=== PATIENT | male | born 1960 | race Caucasian/White ===

== ENCOUNTER 2024-05-19 19:10 | Emergency (ER) | payer SELFPAY ==
[~2024-05-19] VITALS: Ht 188 cm; Wt 110.0 kg
[2024-05-19 19:20] VITALS: O2SAT 94
[2024-05-19 20:37] LABS: BASOPHILS % 0.5 % (0.0-2.0); EOSINOPHILS % 1.1 % (0.0-5.0); HEMATOCRIT. 31.2 % (42.0-52.0); HEMOGLOBIN. 10.5 g/dL (14.0-18.0); LYMPHOCYTES % 2.9 % (20.0-50.0); MEAN CORPUSCULAR HEMOGLOBIN 32.1 pg (28.0-32.0); MEAN CORPUSCULAR HGB CONC 33.8 g/dL (31.0-37.0); MEAN PLATELET VOLUME 9.8 fl (7.4-10.4); MONOCYTES % 1.2 % (2.0-8.0); NEUTROPHILS % 94.3 % (40.0-76.0); PLATELET 154 x1000/uL (130-400); RED BLOOD CELL COUNT 3.28 mill/uL (4.7-6.1); RED CELL DISTRIBUTION WIDTH 14.2 % (11.6-14.6); WHITE BLOOD COUNT 8.8 x1000/uL (4.5-11.0)
[2024-05-19] MEDS: LORAZEPAM 2MG/ML INJ IV ONE (20:41)
[2024-05-19 20:44] LABS: CHLORIDE 111 mEq/L (98-107); SODIUM 145 mEq/L (136-145)
[2024-05-19 20:45] LABS: CALCIUM 8.7 mg/dL (8.7-10.4); CARBON DIOXIDE 27 mEq/L (21-32); DIFFERENTIAL COMMENT 1
[2024-05-19] MEDS ORDERED: LEVOFLOXACIN 750MG PREMIX 150 ML IV ONE (20:45)
[2024-05-19 20:50] LABS: CREATININE 1.1 mg/dL (0.6-1.3); GLUCOSE 90 mg/dL (70-105); UREA NITROGEN BLOOD 26 mg/dL (9-23)
[2024-05-19 20:53] LABS: PROTHROMBIN TIME 11.6 sec (9.6-11.0)
[2024-05-19] MEDS: SODIUM CHLORIDE 0.9% 2,200 ML IV ONE (21:07)
[2024-05-19] MEDS: CEFTRIAXONE 1GM/50ML 50 ML IV NR (21:14)
[2024-05-19] MEDS ORDERED: AZITHROMYCIN 500MG/250ML 250 ML IV SCH (21:15)
[2024-05-19] MEDS: AZITHROMYCIN 500MG/250ML 250 ML IV SCH (22:04)
[2024-05-20] MEDS: ACETAMINOPHEN 325MG TABLET PO ONE (01:28)
[2024-05-20 02:00] VITALS: TEMP 37.28076
[2024-05-20] MEDS ORDERED: LEVO750T68 MT (02:54)
[2024-05-20 06:00] VITALS: BP 110/62; PULSE 68; RESP 17; O2SAT 97
== END 2024-05-20 08:39 | disposition home or self-care (01) ==
LOC: ER 19:10 → EDBEDREQTM 05-20 02:27 → EDBEDREQ 05-20 02:27 → EDBEDREQSVC 05-20 02:27 → ER 05-20 08:39
DX: A41.9 Sepsis, unspecified organism (principal); R41.0 Disorientation, unspecified; E86.0 Dehydration; E78.5 Hyperlipidemia, unspecified; I10 Essential (primary) hypertension; N40.0 Benign prostatic hyperplasia without lower urinary tract symptoms; Z20.822 Contact with and (suspected) exposure to COVID-19; Z86.73 Personal history of transient ischemic attack (TIA), and cerebral infarction without residual deficits
CPT/HCPCS: 80048; 83605; 85025; 85610; 87040; 87186; 87077; 36415; 84145; 71045; 93005; 96367; 96365; 96375; 99285; 87804 ×2; 87426; J0456; J0696; J2060; J7030; Z7610; J1956

== ENCOUNTER 2024-07-06 19:17 | Inpatient (IN) | payer BC ==
[~2024-07-06] VITALS: Ht 188 cm; Wt 106.6 kg
[~2024-07-06 19:17] MED LIST: LEVO750T68 MT
[2024-07-06] MEDS: SODIUM CHLORIDE 0.9% (SEPSIS BOLUS) IV ONE (20:08)
[2024-07-06] MEDS: VANCOMYCIN 1G PREMIX 200 ML IV ONE (20:12)
[2024-07-06] MEDS: PIPERACILLIN/TAZO 3.375G/50ML 50 ML IV ONE (20:14)
[2024-07-06 20:17] LABS: HEMATOCRIT. 30.6 % (42.0-52.0); HEMOGLOBIN. 10.3 g/dL (14.0-18.0); MEAN CORPUSCULAR HEMOGLOBIN 31.6 pg (28.0-32.0); MEAN CORPUSCULAR HGB CONC 33.6 g/dL (31.0-37.0); MEAN CORPUSCULAR VOLUME 94.1 fL (80.0-94.0); MEAN PLATELET VOLUME 9.9 fl (7.4-10.4); PLATELET 117 x1000/uL (130-400); RED BLOOD CELL COUNT 3.25 mill/uL (4.7-6.1); RED CELL DISTRIBUTION WIDTH 14.4 % (11.6-14.6); WHITE BLOOD COUNT 8.8 x1000/uL (4.5-11.0)
[2024-07-06 20:28] LABS: CHLORIDE 113 mEq/L (98-107); POTASSIUM 3.5 mEq/L (3.5-5.1); SODIUM 147 mEq/L (136-145)
[2024-07-06 20:29] LABS: CALCIUM 8.5 mg/dL (8.7-10.4); CARBON DIOXIDE 25 mEq/L (21-32)
[2024-07-06 20:34] LABS: GLUCOSE 115 mg/dL (70-105); UREA NITROGEN BLOOD 21 mg/dL (9-23)
[2024-07-06 20:35] LABS: TROPONIN I HIGH SENSITIVITY 8 ng/L (3.0-53)
[2024-07-06 20:36] LABS: ALANINE AMINOTRANSFERASE 13 IU/L (10-49); ALBUMIN 3.3 g/dL (3.2-4.8); ASPARTATE AMINOTRANSFERASE 13 IU/L (<34); BILIRUBIN DIRECT 0.5 mg/dL (<=3.0)
[2024-07-06 20:37] LABS: BILIRUBIN TOTAL 1.2 mg/dL (0.1-1.0)
[2024-07-06 20:42] LABS: DIFFERENTIAL COMMENT 1
[2024-07-06 20:58] LABS: INR 1.2; PROTHROMBIN TIME 12.4 sec (9.6-11.0)
[2024-07-06 21:42] LABS: PLATELET ESTIMATE DECREASED
[2024-07-06 23:09] LABS: INFLUENZA TYPE A Presumptive Negative (Pres. Neg.); INFLUENZA TYPE B Presumptive Negative (Pres. Neg.)
[2024-07-06 23:10] LABS: RESPIRATORY SYNCYTIAL VIRUS Not Detected (Not Detectd)
[2024-07-06] MEDS: GABAPENTIN 300MG CAPSULE PO ONE (23:40)
[2024-07-07 00:10] VITALS: BP 112/49; PULSE 76; RESP 16; TEMP 36.3; O2SAT 93
[2024-07-07] MEDS ORDERED: IPRATROPIUM/ALBUTEROL 0.5-3(2.5)MG/3ML NEB HHN PRN (00:45)
[2024-07-07] MEDS ORDERED: CLONIDINE 0.1MG TABLET PO PRN (00:45)
[2024-07-07] MEDS ORDERED: HYDROCODONE/ACETAMINOPHEN 5/325MG TABLET PO PRN (00:45)
[2024-07-07] MEDS ORDERED: GUAIFENESIN 200MG/10ML SUGAR FREE UDC PO PRN (00:45)
[2024-07-07] MEDS ORDERED: MAGNESIUM/ALUMINUM HYDROXIDE/SIMETHICONE 30ML UDC PO PRN (00:45)
[2024-07-07] MEDS ORDERED: CEFEPIME 1GM IN DEXT 5% 50ML IV SCH (00:45)
[2024-07-07] MEDS ORDERED: DOCUSATE SODIUM 100MG CAPSULE PO PRN (00:45)
[2024-07-07] MEDS: ACETAMINOPHEN 325MG TABLET PO PRN ×2 (03:00→18:13)
[2024-07-07] MEDS ORDERED: ASCO-386 PO (03:05)
[2024-07-07] MEDS ORDERED: GABA-1180 MT (03:05)
[2024-07-07] MEDS ORDERED: FINA-37 MT (03:05)
[2024-07-07] MEDS ORDERED: AMLO10TA4 MT (03:05)
[2024-07-07] MEDS ORDERED: DOXA4TAB3 MT (03:05)
[2024-07-07] MEDS ORDERED: ACET-2708 MT (03:05)
[2024-07-07] MEDS ORDERED: MINO10TA MT (03:05)
[2024-07-07] MEDS ORDERED: CHOL400D7 MT (03:05)
[2024-07-07] MEDS ORDERED: ZINC1POW MC (03:05)
[2024-07-07] MEDS ORDERED: TAMS-11 MT (03:05)
[2024-07-07] MEDS ORDERED: HYDR50TA40 PO (03:05)
[2024-07-07] MEDS ORDERED: MULT-1146 MT (03:05)
[2024-07-07] MEDS ORDERED: COR25 MT (03:05)
[2024-07-07] MEDS ORDERED: LIP40 MT (03:05)
[2024-07-07] MEDS ORDERED: LIDO120C7 TP (03:05)
[2024-07-07] MEDS ORDERED: MELA5TAB3 MT (03:05)
[2024-07-07] MEDS: CEFEPIME 1GM PREMIX 50ML IV SCH (03:30)
[2024-07-07 04:00] VITALS: BP 133/56; PULSE 63; RESP 16; TEMP 36.3; O2SAT 96
[2024-07-07 07:20] LABS: CREATINE KINASE MB FRACTION < 0.5 ng/mL (0.5-3.6); TROPONIN I HIGH SENSITIVITY 25 ng/L (3.0-53)
[2024-07-07 07:21] LABS: CREATINE KINASE 52 IU/L (46-171)
[2024-07-07 08:00] VITALS: BP 128/62; PULSE 63; RESP 18; TEMP 37; O2SAT 97
[2024-07-07 08:05] LABS: *AMPHETAMINES SCREEN URINE NEGATIVE (NEGATIVE); *BARBITURATES SCREEN URINE NEGATIVE (NEGATIVE); *BENZODIAZEPINES SCREEN URINE NEGATIVE (NEGATIVE); *COCAINE SCREEN URINE NEGATIVE (NEGATIVE); METHADONE URINE SCREEN NEGATIVE (NEGATIVE); OPIATES URINE SCREEN NEGATIVE (NEGATIVE)
[2024-07-07 08:06] LABS: CANNABINOID URINE SCREEN NEGATIVE (NEGATIVE); ECSTASY MDMA SCREEN URINE NEGATIVE (NEGATIVE); PHENCYCLIDINE URINE SCREEN NEGATIVE (NEGATIVE)
[2024-07-07 08:29] LABS: CLARITY URINE CLOUDY (CLEAR); COLOR URINE YELLOW (YELLOW); GLUCOSE URINE NEGATIVE (NEGATIVE); KETONES URINE NEGATIVE (NEGATIVE); LEUKOCYTE ESTERASE URINE 2+ (NEGATIVE); NITRITE URINE NEGATIVE (NEGATIVE); OCCULT BLOOD URINE 3+ (NEGATIVE); PROTEIN URINE 1+ (NEGATIVE); SPECIFIC GRAVITY URINE 1.013 (1.005-1.030); UROBILINOGEN URINE 0.2 E.U./dL (0.2-1.0)
[2024-07-07] MEDS: VANCOMYCIN 1GM/200ML PMX (BAXTER) IV SCH (09:00)
[2024-07-07 09:04] LABS: SQUAMOUS EPITHELIAL CELL URINE NONE SEEN /lpf (RARE/1+)
[2024-07-07 09:06] LABS: BACTERIA URINE 1+; RBC URINE 25-50 /hpf (0-2); WBC URINE 25-50 /hpf (0-2)
[2024-07-07 12:00] VITALS: BP 124/60; PULSE 56; RESP 19; TEMP 37; O2SAT 98
[2024-07-07] MEDS: MULTIVITAMINS,THER W-MINERALS TABLET PO SCH (13:19)
[2024-07-07] MEDS: GABAPENTIN 300MG CAPSULE PO SCH (13:19)
[2024-07-07] MEDS: DOXAZOSIN MESYLATE 4MG TABLET PO SCH (13:22)
[2024-07-07] MEDS: AMLODIPINE 10MG TABLET PO SCH (13:22)
[2024-07-07 16:00] VITALS: BP 164/75; PULSE 53; RESP 18; TEMP 37.4; O2SAT 98
[2024-07-07] MEDS: FINASTERIDE 5MG TABLET PO SCH (18:07)
[2024-07-07 20:00] VITALS: BP 139/73; PULSE 81; RESP 16; TEMP 36.3; O2SAT 97
[2024-07-07] MEDS ORDERED: DOXYCYCLINE HYCLATE 100MG CAPSULE PO SCH (21:00)
[2024-07-07 21:43] LABS: CREATINE KINASE MB FRACTION 0.6 ng/mL (0.5-3.6)
[2024-07-07] MEDS: HYDRALAZINE HCL 50MG TABLET PO SCH (22:20)
[2024-07-07] MEDS: MINOXIDIL 10MG TABLET PO SCH (22:20)
[2024-07-07] MEDS: ATORVASTATIN CALCIUM 40MG TABLET PO SCH (22:21)
[2024-07-07] MEDS: CARVEDILOL 12.5MG TABLET PO SCH (22:21)
[2024-07-07] MEDS: MELATONIN 3MG TABLET PO SCH (22:21)
[2024-07-08] VITALS (7 sets, daily range): BP systolic 111–149; BP diastolic 50–68; PULSE 56–65; RESP 16–19; TEMP 36.8–37.2; O2SAT 95–99
[2024-07-08 07:47] LABS: BASOPHILS % 0.9 % (0.0-2.0); EOSINOPHILS % 2.9 % (0.0-5.0); HEMATOCRIT. 28.7 % (42.0-52.0); HEMOGLOBIN. 9.6 g/dL (14.0-18.0); LYMPHOCYTES % 11.4 % (20.0-50.0); MEAN CORPUSCULAR HEMOGLOBIN 31.1 pg (28.0-32.0); MEAN CORPUSCULAR HGB CONC 33.3 g/dL (31.0-37.0); MEAN CORPUSCULAR VOLUME 93.4 fL (80.0-94.0); MEAN PLATELET VOLUME 10.5 fl (7.4-10.4); MONOCYTES % 6.8 % (2.0-8.0); PLATELET 118 x1000/uL (130-400); RED BLOOD CELL COUNT 3.08 mill/uL (4.7-6.1); RED CELL DISTRIBUTION WIDTH 14.4 % (11.6-14.6); WHITE BLOOD COUNT 6.7 x1000/uL (4.5-11.0)
[2024-07-08 07:52] LABS: THYROID STIMULATING HORMONE 1.26 uIU/mL (0.55-4.78)
[2024-07-08] MEDS ORDERED: LIDOCAINE HCL 4% CREAM 76GM TUBE TP SCH (09:00)
[2024-07-08] MEDS: ASCORBIC ACID 500 MG TABLET PO SCH (10:26)
[2024-07-08] MEDS: ONDANSETRON HCL 4MG/2ML INJ IV PRN (20:11)
== END 2024-07-08 20:00 | disposition home or self-care (01) | DRG 871 ==
LOC: ER 19:17 → 5WST 22:50 → EDBEDREQ 22:59 → EDBEDREQTM 22:59
PROVIDERS: ADMIT Internal Medicine; ATTEND Internal Medicine
DX: A41.9 Sepsis, unspecified organism (principal); J18.9 Pneumonia, unspecified organism; N39.0 Urinary tract infection, site not specified; I69.354 Hemiplegia and hemiparesis following cerebral infarction affecting left non-dominant side; E86.0 Dehydration; D53.9 Nutritional anemia, unspecified; D69.6 Thrombocytopenia, unspecified; Z20.822 Contact with and (suspected) exposure to COVID-19; K21.9 Gastro-esophageal reflux disease without esophagitis; N20.0 Calculus of kidney; N40.0 Benign prostatic hyperplasia without lower urinary tract symptoms; K80.20 Calculus of gallbladder without cholecystitis without obstruction; E78.00 Pure hypercholesterolemia, unspecified; Z79.899 Other long term (current) drug therapy; Z87.440 Personal history of urinary (tract) infections; Z74.01 Bed confinement status; I10 Essential (primary) hypertension
CPT/HCPCS: 36415; 71045; 74176; 80048; 80061; 80076; 80305; 81003; 82550; 82553; 83605; 84145; 84443; 84484; 85025; 87420; 87426; 87804; 93005; 93970; 99291; A4565; A4606; J0692; J2405; J2543; J3370; J7030